=== PATIENT | male | born 1975 | race Caucasian/White ===

== ENCOUNTER 2019-06-30 17:28 | Emergency (ER) | payer SELFPAY ==
[~2019-06-30] VITALS: Ht 172.7 cm; Wt 56.2 kg
[2019-06-30] MEDS ORDERED: LOTRIMIN ULTRA12 GM T (18:02)
== END 2019-06-30 18:07 | disposition home or self-care (01) ==
LOC: ED 17:28
DX: B35.8 Other dermatophytoses (principal)

== ENCOUNTER 2019-12-20 10:35 | Emergency (ER) | payer SELFPAY ==
[~2019-12-20] VITALS: Ht 172.7 cm; Wt 56.7 kg
[~2019-12-20 10:35] MED LIST: LOTRIMIN ULTRA12 GM T
[2019-12-20 11:16] LABS: BASO # 0.2 10*3/uL (0.0-0.1); BASO % 2.3 % (0.0-1.0); EOS # 0.4 10*3/uL (0.0-0.4); HEMATOCRIT 46.8 % (42.0-52.0); HEMOGLOBIN 16.1 g/dl (14.0-18.0); LYMPH # 2.9 10*3/uL (1.3-4.4); LYMPH % 31.8 % (27.0-41.0); MEAN CELL VOLUME 92.7 fl (80.0-94.0); MEAN CORPUSCULAR HGB 31.9 pg (27.0-31.0); MEAN CORPUSCULAR HGB CONC 34.4 g/dl (33.0-37.0); MEAN PLATELET VOLUME 8.6 fl (9.6-12.3); MONO # 0.7 10*3/uL (0.1-1.0); MONO % 7.4 % (3.0-9.0); NEUT % 54.4 % (47.0-73.0); PLATELET COUNT AUTOMATED 368 10*3/uL (130-400); RED BLOOD COUNT 5.05 10*6/uL (4.50-5.90); RED CELL DISTRI WIDTH 13.7 % (0-14.5); WHITE BLOOD COUNT 9.3 10*3/uL (4.8-10.8)
[2019-12-20 11:26] LABS: ACT PARTIAL THROMBO TIME 27.9 SECONDS (20.0-32.1); INTERNATIONAL NORM RATIO 0.9 (2.0-3.5)
[2019-12-20 11:31] LABS: ALKALINE PHOSPHATASE 81 U/L (45-117); BUN 5 mg/dl (7-24); CHLORIDE 105 mmol/L (98-107); CREATININE 0.95 mg/dL (0.70-1.30); POTASSIUM 3.8 mmol/L (3.5-5.1); SGOT/AST 40 IU/L (3-35); SGPT/ALT 26 U/L (12-78); SODIUM 139 mmol/L (136-145); TOTAL PROTEIN 8.6 gm/dL (6.4-8.2)
[2019-12-20 12:09] LABS: URINE AMPHETAMINES < 1000 (1000ng/ml); URINE BARBITURATES < 200 (200ng/ml); URINE BENZODIAZEPINES < 200 (200ng/ml); URINE CANNABINOIDS (THC) < 50 (50ng/ml); URINE COCAINE < 300 (300ng/ml); URINE METHADONE < 300 (300ng/ml); URINE OPIATES < 300 (300ng/ml)
[2019-12-20 12:11] LABS: URINE PHENCYCLIDINE < 25 (25ng/ml)
[2019-12-20 12:12] LABS: BILIRUBIN NEGATIVE (NEGATIVE); BLOOD NEGATIVE (NEGATIVE); CLARITY CLEAR (CLEAR); COLOR STRAW (YELLOW); GLUCOSE NEGATIVE (NEGATIVE); KETONE NEGATIVE (NEGATIVE); RBC 0-2 rbc/hpf (0-2); SPECIFIC GRAVITY 1.005 (1.005-1.030)
[2019-12-20 12:13] LABS: LEUKO ESTERASE NEGATIVE (NEGATIVE); NITRITE NEGATIVE (NEGATIVE); UROBILINOGEN 0.2 E.U./dl (0.2-1.0)
== END 2019-12-21 08:13 | disposition home or self-care (01) ==
LOC: ED 10:35
PROVIDERS: Emergency Medicine
DX: F32.9 Major depressive disorder, single episode, unspecified (principal); F10.239 Alcohol dependence with withdrawal, unspecified; R79.1 Abnormal coagulation profile; Y90.9 Presence of alcohol in blood, level not specified

== ENCOUNTER 2020-04-03 19:49 | Emergency (ER) | payer OTHER ==
[~2020-04-03] VITALS: Ht 172.7 cm; Wt 50.8 kg
[2020-04-03 20:04] LABS: BASO # 0.2 10*3/uL (0.0-0.1); BASO % 1.5 % (0.0-1.0); EOS # 0.4 10*3/uL (0.0-0.4); EOS % 3.9 % (1.0-4.0); HEMATOCRIT 49.7 % (42.0-52.0); LYMPH # 2.1 10*3/uL (1.3-4.4); LYMPH % 19.8 % (27.0-41.0); MEAN CELL VOLUME 93.8 fl (80.0-94.0); MEAN CORPUSCULAR HGB 31.9 pg (27.0-31.0); MEAN PLATELET VOLUME 8.9 fl (9.6-12.3); MONO # 1.1 10*3/uL (0.1-1.0); MONO % 10.1 % (3.0-9.0); NEUT # 6.9 10*3/uL (2.3-7.9); NEUT % 64.4 % (47.0-73.0); PLATELET COUNT AUTOMATED 311 10*3/uL (130-400); RED CELL DISTRI WIDTH 13.2 % (0-14.5); WHITE BLOOD COUNT 10.7 10*3/uL (4.8-10.8)
[2020-04-03 20:15] LABS: ACT PARTIAL THROMBO TIME 26.5 SECONDS (20.0-32.1)
[2020-04-03 20:19] LABS: ALBUMIN 3.8 gm/dl (3.1-4.5); ALKALINE PHOSPHATASE 73 U/L (45-117); BUN 7 mg/dl (7-24); CHLORIDE 100 mmol/L (98-107); POTASSIUM 3.9 mmol/L (3.5-5.1); SGOT/AST 31 IU/L (3-35); SGPT/ALT 20 U/L (12-78); SODIUM 134 mmol/L (136-145); TOTAL PROTEIN 8.1 gm/dL (6.4-8.2)
[2020-04-03 20:28] LABS: TROPONIN I < 0.015 ng/ml (<0.045)
[2020-04-03] MEDS ORDERED: AMLODIPINE BESY10 MG PO (21:51)
[2020-04-03] MEDS ORDERED: OMEPRAZOLE20 M2 PO (21:57)
[2020-04-03] MEDS ORDERED: CHLORDIAZEPOXID25 MG PO (21:57)
[2020-04-03] MEDS ORDERED: PEPCID20 MG PO (21:57)
== END 2020-04-03 22:30 | disposition home or self-care (01) ==
LOC: ED 19:49
PROVIDERS: Emergency Medicine
DX: I10 Essential (primary) hypertension (principal); F10.10 Alcohol abuse, uncomplicated; K20.8 Other esophagitis; R07.9 Chest pain, unspecified; F17.200 Nicotine dependence, unspecified, uncomplicated

== ENCOUNTER → 2020-04-29 | Outpatient (CLI) | payer OTHER ==
[~2020-04-29] MED LIST changes: +AMLODIPINE BESY10 MG PO; +CHLORDIAZEPOXID25 MG PO; +OMEPRAZOLE20 M2 PO; +PEPCID20 MG PO
== END | disposition home or self-care (01) ==
LOC: RESCLI 03:46
DX: I10 Essential (primary) hypertension (principal); R45.1 Restlessness and agitation; F41.9 Anxiety disorder, unspecified; K21.9 Gastro-esophageal reflux disease without esophagitis; F10.10 Alcohol abuse, uncomplicated; Z76.89 Persons encountering health services in other specified circumstances; Z72.0 Tobacco use; Z71.6 Tobacco abuse counseling; Z71.41 Alcohol abuse counseling and surveillance of alcoholic; Z79.899 Other long term (current) drug therapy

== ENCOUNTER → 2020-05-04 | Outpatient (CLI) | payer OTHER | END | disposition home or self-care (01) | LOC: RESCLI 15:35 | DX: K21.9 Gastro-esophageal reflux disease without esophagitis (principal); I10 Essential (primary) hypertension; R45.1 Restlessness and agitation; F41.9 Anxiety disorder, unspecified; F17.200 Nicotine dependence, unspecified, uncomplicated; Z79.899 Other long term (current) drug therapy ==